=== PATIENT | female | born 1980 | race American Indian/Alaskan Native ===

== ENCOUNTER 2021-02-28 15:00 | Emergency (ER) | payer SELFPAY ==
--- NOTE | 2021-02-28 15:15 | Emergency Department Report ---
ED CPR HPI - General Chief Complaint: Cardiac Arrest/CPR Stated Complaint: CARDIAC ARREST Time Seen by Provider: 02/28/21 15:09 Source: patient (Sister Delma per phone), EMS - History of Present Illness Initial Comments: Chief complaint: Cardiac arrest HPI: This a 40-year-old female with history of stage IV pancreatic cancer who presents in cardiac arrest. Family desired resuscitation attempt. EMS performed CPR with chest compressions and bag mask ventilation. History provided by Sister Delma per phone. Patient had recent hospitalization 2 weeks ago. She had feeding tube inserted at that time. CT scan performed last revealed progression of cancer. Oncology was informed family that nothing else could be done medically to address the cancer. Patient is currently on hospice care. 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 ED Physical Exam - General General appearance: cachectic, other (Lifeless no spontaneous movement) - Head Head exam: Present: atraumatic, normocephalic, other (Bitemporal wasting) - Eye Eye exam: Present: scleral icterus Pupils: Present: other (Fixed dilated pupils dry corneas) - ENT ENT exam: Present: other (Dry mucous membranes) - Neck Neck exam: Present: normal inspection - Respiratory Respiratory exam: Present: other (No spontaneous respirations) - Cardiovascular Cardiovascular Exam: Present: other (No palpable pulse no auscultated heart sounds) - GI/Abdominal GI/Abdominal exam: Present: other (Feeding tube in place, concave abdomen) - Extremities Exam Extremities exam: Present: other (Cachectic extremities no deformity) - Neurological Exam Neurological exam: Present: other (Lifeless no spontaneous movement) - Psychiatric Psychiatric exam: Present: other (Lifeless no spontaneous movement) - Skin Skin exam: Present: pallor, other ED Medical Decision Making - Medical Decision Making This is a 40-year-old female with history of stage IV pancreatic cancer. On hospice therapy. Resuscitation attempt via EMS for 22 minutes unsuccessful. Patient pronounced at time of arrival. Time of 1452. I spoke with Sister Delma per phone. I notified her of sister's . Critical care attestation.: If time is entered above; I have spent that time in minutes in the direct care of this critically ill patient, excluding procedure time. ED Disposition Clinical Impression: Metastatic cancer, Cardiac arrest, Pancreatic cancer Disposition: 20 Is pt being admited?: No Does the pt Need Aspirin: No Condition: Stable Time of Disposition: 14:52
== END 2021-03-01 05:12 ==
LOC: ED 15:00
DX: I46.9 Cardiac arrest, cause unspecified (principal); C79.9 Secondary malignant neoplasm of unspecified site; C25.9 Malignant neoplasm of pancreas, unspecified
CPT/HCPCS: 99285